=== PATIENT | male | born 1965 | race Caucasian/White ===

== ENCOUNTER 2023-01-02 08:44 | Outpatient (CLI) | payer OTHER ==
--- NOTE | 2023-01-02 09:18 | Sleep Patient Instructions ---
Sleep Center Visit Summary - Patient Visit Information Reason for Visit: Initial consult for evaluation of sleep disordered breathing and other sleep issues. - Patient Instructions Instructions Attached: Sleep Study Home Monitor, Sleep Study Additional Instructions: You will be completing a sleep study, either an in-lab polysomnography (PSG) or home sleep study (HST). You will follow-up in the sleep care office after the sleep study is completed to hear the results and talk about therapy, if needed. You will be called by our office staff to schedule this appointment, but you may contact us with any questions. - Clinic Information Contact: [facility] [address] [place] [id number] [email or web address] T: [phone]
--- NOTE | 2023-01-02 09:29 | SLEEP CARE CONSULTATION ---
Information from patient questionnaire entered by Ishan Sesay. I have reviewed and concur with the information entered by Ishan Sesay. This document represents the service I personally performed and the decisions made by me, Zohreh Cruz ARNP. History of Present Illness Service Date and Time: 01/02/2023 0844 Reason for Visit: New patient Chief Complaint: reports: Unrefreshed sleep, Snoring, Observed pauses in breathing, Frequent awakenings at night Date of Onset: SINCE 2004 Usual bedtime: 9PM Time it takes to fall asleep: MINUTES Snores at night: Yes Observed to quit breathing while asleep: Yes Sleeps alone due to snoring: Yes Number of times waking at night: 3-4 Reasons for waking at night: reports: Snoring, Gasping for air, Bathroom. denies: Choking Toss, Turn, or Twitch while sleeping: Yes Recalls having dreams: Yes Usually gets out of bed at: 0700 Feels refreshed in the morning: Yes Morning headache: No Sleepy or fatigued during the day: Yes Ever fallen asleep while driving: Yes (drowsy driving, no accidents) Takes day naps: Yes (1-2 times a week for 30 minutes) Dreams during day naps: Yes Prior sleep studies: No Additional HPI information: I had the pleasure of seeing JOVANY BRIAN today regarding the possibility of him having a sleep disorder. His current complaints are frequent night awakenings, observed pauses in breathing, snoring and unrefreshed sleep. His tells him he snores very loud and will wake him up to turn over. She has told him that he is stopping breathing. She will occasionally sleep in another room because of his snoring. He does not always feel refreshed in the morning. He can fall asleep quickly at night. He is getting up frequently to urinate but is able to fall back to sleep easily. He has woke up feeling like he is gasping for air but denies choking. He states that about 1-2 times a year he has been known to kick out or hit out during his sleep. He does remember dreaming generally. He says he has brothers who have been diagnosed with sleep apnea and are using a CPAP machine. He says he knows he needs to take care of his health and is here to finally be tested. - Parasomnia Symptoms Ever been unable to move upon waking from sleep: No Walks in sleep: No Talks in sleep: Yes Ever acted out dreams in sleep: Yes (kicked out, punched - [id number] times a year) Ever felt weak in the knees when startled or emotional: No Bothered by creepy, crawly, restless sensations in legs: No Problems with memory or concentration: No Subjective Initial [place] Sleepiness Scale score: 8 (12/10/22) Past Medical History Past Medical History: reports: Other (no significant medical history) Social History The patient's occupation is a RE. Patient is and lives in [place]. Have you smoked in the past 12 months: No Alcohol use: Yes Alcohol amount and frequency: 2 DRINKS A WEEK Caffeine use: No Family History Family history of sleep disordered breathing: Yes Family Hx Sleep Apnea: Father: Snoring, Sleep apnea - Untreated, Sibling: Snoring, Sleep apnea - Treated Allergies and Home Medications Known drug allergies: No Drug allergies reviewed: Yes Home medication list reviewed: Yes Allergy and home medication list: Allergies No Known Drug Allergies Allergy (Verified 01/02/23 08:55) Home Medications No Known Home Medications 01/02/23 [History] Review of Systems Weight gain over past 5 years: 10 Cardiovascular: denies: high blood pressure Gastrointestinal: denies: heartburn, difficulty swallowing Neurological: denies: headaches Psychiatric: denies: anxiety, depression Ear/Nose/Throat: reports: nose bleeds, dry mouth/throat, tonsillectomy, wisdom teeth removed (still has two) Endocrine: denies: thyroid disease Immunologic: denies: allergies to food or environment Physical Exam Vital signs obtained and entered by: ISHAN Shine MA Blood Pressure: 130/82 (LEFT ARM) Cuff size: regular Heart Rate: 67 O2 Saturation: 98 Height: 6 ft 2 in Weight: 234 lb 3.2 oz Body Mass Index: 30.0 BMI Classification: Obese Neck circumference: 16.75 Mouth and throat: narrow oropharynx Soft palate: long Hard palate: normal Uvula: long, edematous Uvula visualization: 25% Mallampati Class III Tongue: enlarged in size with teeth weeks on lateral edges Tonsils: absent bilaterally Neck: normal w/o lymphadenopathy or thyromegaly Heart: regular rate and rhythm Lungs: clear bilaterally Impression and Plan 1. Suspected Obstructive Sleep Apnea-Hypopnea Syndrome, as suggested by a history of loud and irregular snoring, observed cessation of breath while asleep, gasping or choking in sleep, frequent awakening during the night and unrefreshed sleep. Narrow oropharynx and obesity are common predisposing factors for obstructive sleep apnea-hypopnea syndrome. I recommend proceeding to polysomnography to confirm the diagnosis and to assess severity. If the patient has significant sleep disordered breathing, a manual CPAP titration study will also be performed to find the optimal treatment pressure. I informed the patient of what the sleep studies involve and after some discussion, obtained agreement to proceed. The pathophysiology of obstructive sleep apnea-hypopnea syndrome was discussed with the patient and health risks of cardiovascular and cerebrov ascular disease if not treated. Risks of drowsy driving discussed in detail and patient advised to avoid long distance driving and to pulley man at the first sign of drowsiness. Patient agreed to plan. * Schedule polysomnography. * Avoid long distance driving or driving when feeling sleepy. * Avoid alcohol, sedative and muscle relaxant around bedtime. * Attempt to lose weight. * Review instructions provided by trained office staff on how to prepare for the sleep study. * Return for follow-up after sleep study completed. Counseling Topics: Weight loss health impact Plan: PSG/HST Visit Type: In Office Time Spent with Patient (minutes): 30 Provider Statement: I spent 100% of the Face to Face Visit with the patient with greater than 50% spent counseling the patient and coordination of care.
[2023-01-02 09:37] VITALS: BP 130/82; O2SAT 98
== END 2023-01-02 08:45 | disposition home or self-care (01) ==
LOC: SC 08:44
PROVIDERS: ATTEND Nurse Practitioner Family
DX: R06.83 Snoring (principal); G47.8 Other sleep disorders; R06.81 Apnea, not elsewhere classified; E66.9 Obesity, unspecified; Z68.30 Body mass index [BMI] 30.0-30.9, adult
CPT/HCPCS: 99203; 99212

== ENCOUNTER 2023-01-27 20:30 | Outpatient (CLI) | payer OTHER | END 2023-01-27 20:31 | disposition home or self-care (01) | LOC: SC 20:30 | PROVIDERS: ATTEND Nurse Practitioner Family | DX: G47.33 Obstructive sleep apnea (adult) (pediatric) (principal); E66.9 Obesity, unspecified; Z68.30 Body mass index [BMI] 30.0-30.9, adult | CPT/HCPCS: 95810 ==

== ENCOUNTER 2023-02-07 11:24 | Outpatient (CLI) | payer OTHER ==
--- NOTE | 2023-02-07 11:44 | Sleep Patient Instructions ---
Sleep Center Visit Summary - Patient Visit Information Reason for Visit: Follow-up for results of sleep study - Patient Instructions Instructions Attached: CPAP Additional Instructions: You are being started on CPAP therapy with pressure setting at 5-20 cmH2O. You will need to call the sleep care office to set up your follow up once you have your APAP machine and we will schedule a visit to check compliance and response to therapy at that time. You may call the office with any concerns about pressure feeling too low or too much for adjustment, if needed. You should contact DME supplier for any questions or concerns about mask or equipment. Please call office to schedule a follow up appointment in the sleep care office one month after obtaining new device. - Clinic Information Contact: [facility] [address] [place] [address] [email or web address] T: [phone]
--- NOTE | 2023-02-07 11:48 | SLEEP CARE CONSULTATION ---
Information from patient questionnaire entered by Faina Sesay. I have reviewed and concur with the information entered by Faina Sesay. This document represents the service I personally performed and the decisions made by me, Zohreh Cruz ARNP. History of Present Illness Service Date and Time: 02/07/2023 1124 Initial [place] Sleepiness Scale score: 8 (12/10/22) Current [place] Sleepiness Scale score: 9 Additional HPI information: JOVANY BRIAN returns for follow up and results of the recently performed polysomnography. The sleep study showed severe obstructive sleep apnea with an average AHI of 50.1 and tesha oxygen saturation of 74%. I explained the pathophysiology behind obstructive sleep apnea. We then spent quite a bit of time discussing different treatment options. For mild obstructive sleep apnea, surgery and oral appliance are alternatives to nasal CPAP therapy but in moderate or severe cases, nasal CPAP is the most effective and reliable treatment. I reviewed the impact of weight changes on sleep apnea and strongly recommended losing weight. After some discussion, the patient opted to go with the nasal CPAP therapy. Nasal autoCPAP set at 5-20 cmH20 will be ordered with rationale explained. A manual titration study will be ordered if unable to find optimal pressure with office adjustments. I explained how CPAP machine works and what to expect when using the machine. Using CPAP every night in order to get used to it was emphasized. Patient advised to put CPAP mask on before getting into bed so as not to fall asleep without CPAP. To assist acclimation to CPAP use, it could also be used for a short time during day while reading or watching TV. The patient was instructed to call the CPAP supplier to discuss any mechanical problem that may occur. If the mask given is uncomfortable or is difficult to keep on through the night even with adjustment, contact the CPAP supplier as many will replace with another mask style if notified before 30 days. If snoring or perceives is not getting enough air or too much air from the machine, notify this office. Patient counseled not drink alcohol less than 4 hours before bedtime as it can increase snoring and apnea. Patient was cautioned about risks of drowsy driving until sleepiness symptoms resolve. Patient denies drowsy driving. Sleep Study - Results Type of Sleep Study: Polysomnography (COMPLETED 01/27/2023) Prior sleep studies: No Polysomnography/Home Sleep Study results: IMPRESSION: The quality of the study is good. The patient had slightly reduced sleep efficiency. The sleep architecture was abnormal for sleep fragmentation and reduced amount of time spent in REM and slow wave sleep (N3). Respiratory monitoring showed severe obstructive sleep apnea-hypopnea (AHI = 50.1) associated with frequent arousals, oxyhemoglobin desaturation and moderate hypoxia (tesha oxygen saturation of 74%). Baseline oxygen saturation was normal. The respiratory events occurred more frequently during supine sleep (supine AHI = 81.0; non-supine = 22.96). Snore was loud in intensity. There was no significant periodic leg movement of sleep. Cardiac rhythm was normal sinus rhythm without significant arrhythmia. No abnormal behavior (parasomnia) observed during the night. Allergies and Home Medications Known drug allergies: No Drug allergies reviewed: Yes Home medication list reviewed: Yes (no changes) Allergy and home medication list: Allergies No Known Drug Allergies Allergy (Verified 02/06/23 10:36) Review of Systems Review of systems same as previous: Yes (no changes) Physical Exam Vital signs obtained and entered by: ZOHREH HEWITT-Rl Blood Pressure: 148/80 Cuff size: wrist (left) Heart Rate: 65 O2 Saturation: 95 Height: 6 ft 2 in Weight: 226 lb 12.8 oz Body Mass Index: 29.1 BMI Classification: Overweight Impression and Plan 1. Obstructive Sleep Apnea-Hypopnea Syndrome, severe, with lowest oxygen saturation of 74%. Obviously this is the cause of the patients symptoms of unrefreshed sleep, and excessive daytime sleepiness. As mentioned above, the patient will be started on nasal autoCPAP therapy with pressure set at 5-20 cmH2 O. Compliance guidelines also reviewed. A copy of compliance guidelines will be given for reference at check out. Because the apnea is more severe supine, I instructed to avoid sleeping supine using pillow positioning until able to start CPAP use. 2. Hypoxemia, moderate, with a tesha oxygen saturation of 74% and 74 minutes spent under 90%. The baseline oxygen saturation was normal with an average oxygen saturation of 91%. 3. Overweight, unspecified. Currently patients BMI is 29.1. Obesity increases the risk of apnea, CPAP pressure requirements and overall health risks especially cardiovascular and diabetes. Thus patient is advised to lose weight. * Nasal auto CPAP therapy, pressure at 5-20 cm H2O. * Attempt to lose weight. * Avoid alcohol consumption near bedtime. * Avoid supine sleep until using CPAP. * The patient is again cautioned about driving until sleepiness completely resolves. * Return one month after CPAP obtained. I will assess response to therapy and compliance at that time. Counseling Topics: Weight loss health impact Prescriptions: Auto CPAP Visit Type: In Office Time Spent with Patient (minutes): 22 Provider Statement: I spent 100% of the Face to Face Visit with the patient with greater than 50% spent counseling the patient and coordination of care.
[2023-02-07 11:54] VITALS: BP 148/80; O2SAT 95
== END 2023-02-07 11:25 | disposition home or self-care (01) ==
LOC: SC 11:24
PROVIDERS: ATTEND Nurse Practitioner Family
DX: G47.33 Obstructive sleep apnea (adult) (pediatric) (principal); R09.02 Hypoxemia; E66.3 Overweight; Z68.29 Body mass index [BMI] 29.0-29.9, adult
CPT/HCPCS: 99212; 99213